=== PATIENT | male | born 1935 | race Caucasian/White ===

== ENCOUNTER 2017-07-27 02:33 | Inpatient (IN) | payer MEDICARE, OTHER ==
[2017-07-25 11:44] VITALS: BP 158/66
--- NOTE | 2017-07-25 14:04 | DIREP ---
PROCEDURE:CHEST 2 VIEWS COMPARISON:None. INDICATIONS:PRE-OP CARDAIC CATH, ABN STRESS FINDINGS: LUNGS/PLEURA:No significant pulmonary parenchymal abnormalities. No effusions. VASCULATURE:Normal. Unremarkable pulmonary vasculature. CARDIAC:Subtle calcifications of the ventricular wall are suspected. MEDIASTINUM:Normal. No visible mass or adenopathy. BONES:Normal. No fracture or visible bony lesion. OTHER:Negative. CONCLUSION:No acute process. Heart size is normal however subtle calcifications of the ventricular wall are suspected Dictated by: Jairo Pham MD on 07/25/2017 at 01:09 PM
[2017-07-27] VITALS (24 sets, daily range): BP systolic 105–175; BP diastolic 38–113
[~2017-07-27] VITALS: Ht 190.5 cm; Wt 115.3 kg
[~2017-07-27 02:33] MED LIST: ASCO10002 PO; CALC500T52 PO; CYAN25008 PO; GABA600T2 PO; LISI1TAB5 PO
[2017-07-27] MEDS ORDERED: HEPARIN ONE (05:48)
[2017-07-27] MEDS ORDERED: SUBLIMAZE ONE (05:49)
[2017-07-27] MEDS ORDERED: VERSED ONE (05:49)
[2017-07-27] MEDS ORDERED: XYLOCAINE ONE (05:49)
[2017-07-27] MEDS ORDERED: PHENERGAN PO ONE ×2 (06:00→06:10)
[2017-07-27] MEDS ORDERED: NS 1000ML 1,000 ML IV SCH (06:00)
[2017-07-27] MEDS ORDERED: VALIUM PO ONE (06:00)
[2017-07-27] MEDS ORDERED: CHOL500016 PO (06:02)
--- NOTE | 2017-07-27 08:35 | NUR ---
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 PATIENT AWAKE AND ALERT. NO DISTRESS NOTED. PATIENT TRANSFERRED INTO ICU BED WITH 3 PERSON ASSIST. PATIENT TOLERATED WELL. PATIENT REINSTRUCTED ON FLAT TIME, VOICED UNDERSTANDING. REPORT RECEIVED FROM Morgan MUÑOZ RN. PATIENT CONNECTED TO BEDSIDE MINDRAY. RIGHT GROIN HEART CATH SITE SOFT, NO BRUISING OR HEMATOMA NOTED. DRESSING C/D/I. PULSES TO BLE 2+, CAP REFILL < 6SEC, EQUAL IN WARMTH, COLOR, AND SENSATION. PATIENT DENIES ANY PAIN. SPOUSE AT BEDSIDE. PATIENT AND SPOUSE ORIENTED TO ROOM, BED, AND CALL LIGHT.
--- NOTE | 2017-07-27 10:15 | NUR ---
DR. ESCOBEDO AT BEDSIDE TALKING TO PATIENT AND SPOUSE OVER HEART CATH FINDINGS AND PLAN OF CARE.
--- NOTE | 2017-07-27 10:30 | NUR ---
FLAT TIME OVER. SITE DRESSING C/D/I, NO SWELLING OR BRUISING NOTED. PATIENT HOB ELEVATED 30 DEGREES. SITE RECHECKED. NO BLEEDING OR HEMATOMA NOTED. BLE CAP REFILLS < 6 SEC, PEDAL PULSES 2+. AM MEDICATIONS TO BE GIVEN, SEE EMAR.
[2017-07-27] MEDS ORDERED: TOPROL XL PO ONE (10:45)
[2017-07-27] MEDS ORDERED: ALTACE ONE (10:45)
[2017-07-27] MEDS ORDERED: RANEXA PO ONE (10:45)
[2017-07-27] MEDS ORDERED: PROTONIX PO ONE (10:45)
[2017-07-27] MEDS ORDERED: NEURONTIN ONE (10:46)
[2017-07-27] MEDS: RANEXA PO SCH ×2 (10:53→21:18)
[2017-07-27] MEDS: ALTACE PO SCH ×2 (10:53→21:18)
[2017-07-27] MEDS: NEURONTIN PO SCH ×2 (10:53→21:19)
[2017-07-27] MEDS: PROTONIX PO SCH (10:54)
[2017-07-27] MEDS: NS 1000ML 1,000 ML IV SCH (10:56)
--- NOTE | 2017-07-27 12:40 | CCRH ---
DATE OF SERVICE: 07/27/2017 PRIMARY PHYSICIAN: Dr. Zamora. CONSULTING PHYSICIAN: Dr. Yap. PRECATHETERIZATION DIAGNOSES: History of significant dyspnea, preoperative cardiovascular evaluation, history of significant shortness of breath and abnormal myocardial perfusion scan with abnormal TID, with inferoposterior reperfusion abnormality, normal ejection fraction. POSTCATHETERIZATION DIAGNOSES: Long distal left main has got a concentric 90% stenosis, tortuous LAD with some degree of calcification and proximal 40-50% stenosis and mid 60% stenosis and diffuse disease of the distal LAD, which appears to still be a fair size vessel and is graftable. The diagonal branch is a small vessel. The circumflex is a fairly large vessel with the marshall circumflex in the distal portion after the origin of the first obtuse marginal branch is a long segment of 90% stenosis with calcification. The first obtuse marginal branch has diffuse luminal irregularity. Right coronary artery is a codominant vessel with tortuosity and diffuse ectasia and diffuse luminal irregularity and distal 60% stenosis. Left ventricle is mildly dilated with good wall contractility, ejection fraction of 60%. ANESTHESIA: 2% lidocaine. PREOPERATIVE MEDICATIONS: Phenergan 25 mg p.o., Valium 2.5 mg p.o., Versed 2 mg IV, fentanyl 25 mcg IV. ANTICOAGULATION: Heparin 2000 units intra-arterially, 2000 units in the flush solution, 1000 in the dye solution. Dye is Omnipaque. Total amount 76 mL. CATHETERS: JL4 6-Angolan, JR4 6-Angolan, and 6-Angolan angled pigtail catheter. ARTERIAL TIME: 8 minutes. FLUOROSCOPY TIME: 2.4 minutes. PROCEDURES: Left heart catheterization, bilateral selective coronary arteriography, left ventriculography via right femoral Jose Manuel approach. NARRATION OF PROCEDURE: Under local anesthesia, the right femoral artery was punctured using open needle technique, and 6-Angolan Cordis sheath was introduced into the femoral artery. Side port of the sheath was used for continuous monitoring of femoral arterial pressure. Subsequently, JL4 6-Angolan left Jose Manuel coronary catheter was introduced over a guidewire and navigated across the ascending aorta, and selective cannulation of left coronary artery was achieved. Left coronary arteriography was performed in EVELYN and SOSA projections using craniocaudal angulations for adequate visualization of all the branches. This catheter was then exchanged with JR4 6-Angolan right coronary catheter which was manipulated, and selective cannulation of right coronary artery was achieved. Right coronary arteriography was performed in EVELYN and AP projections. Right coronary catheter was then exchanged with 6-Angolan angled pigtail catheter which was navigated across the aortic valve. Hemodynamics were measured, and left ventriculography was performed in 30-degree SOSA projection using 35 mL of Isovue at 12 mL/sec at 600 PSI. Patient tolerated the procedure well. HEMODYNAMICS: LVEDP is 15 mm, LV pressure is 160/15, femoral artery pressure 175/81 with a mean of 95. No gradient across the aorta on pullback of the central catheter. FINAL CONCLUSION: Triple vessel coronary artery disease with distal left main 90% stenosis with intact LV systolic function. The patient cannot have his surgery under anesthesia. Probably revascularization with cardiac bypass surgery is advisable. We will make arrangements for the same and optimize medical therapy. Laxmichand MD Marely DR: TERI/oralia JOB# [id number]
--- NOTE | 2017-07-27 14:05 | NUR ---
PATIENT RESTING QUIETLY IN BED WITH EYES CLOSED. RESPIRATION EVEN AND UNLABORED. CALL LIGHT WITHIN EASY REACH.
--- NOTE | 2017-07-27 15:22 | PCM.EKG ---
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
--- NOTE | 2017-07-27 16:15 | NUR ---
UP TO CHAIR PATIENT UP TO CHAIR AT BEDSIDE WITH STANDBY ASSIST. NO DISTRESS NOTED. RIGHT GROIN CATH SITE DRESSING C/D/I, NO BLEEDING/BRUISING OR HEMATOMA NOTED. SPOUSE AT BEDSIDE. CALL LIGHT WITHIN EASY REACH.
--- NOTE | 2017-07-27 17:58 | NUR ---
PATIENT BACK TO BED WITH STANDBY ASSIST. NO DISTRESS NOTED. SIDE RAILS UP X2, CALL LIGHT WITHIN EASY REACH.
--- NOTE | 2017-07-27 18:50 | NUR ---
SBAR REPORT RECEIVED FROM Kristi GUNN RN. INTRODUCED SELF, ASSUMED CARE.
[2017-07-27] MEDS ORDERED: LIPITOR PO SCH (21:00)
[2017-07-28] VITALS (12 sets, daily range): BP systolic 117–181; BP diastolic 54–117
--- NOTE | 2017-07-28 06:52 | NUR ---
Report received from outgoing shift nurse and assumed care.
--- NOTE | 2017-07-28 06:52 | NUR ---
SBAR REPORT GIVEN TO ONCOMING SHIFT. RELINQUISHED CARE.
--- NOTE | 2017-07-28 07:30 | NUR ---
Patient use the urinal, 200 ml of clear, yellow urine.
[2017-07-28] MEDS ORDERED: TOPROL XL PO ONE (07:38)
[2017-07-28] MEDS ORDERED: ASPIRIN EC ONE (07:39)
[2017-07-28] MEDS ORDERED: PROTONIX IV IV ONE (07:39)
--- NOTE | 2017-07-28 07:45 | NUR ---
ASSESSMENT COMPLETED CHARTED. PATIENT LYING IN BED, AWAKE, ALERT AND ORIENTED X3. ON RA WITH SPO2 AT 95%, IV G 20 L WRIST WITH NS INFUSING AT 50 ML/HR. LUNG SOUND CLEAR. BOWEL SOUND X4. NO DISTRESS NOTED. RIGHT GROIN HEART CATH SITE SOFT, NO BRUISING OR HEMATOMA NOTED. DRESSING C/D/I. PULSES TO BLE 2+, CAP REFILL < 6SEC, EQUAL IN WARMTH, COLOR, AND SENSATION. PATIENT STATED THAT HE HAS BACK PAIN BUT IT IS TOLERABLE AT THIS TIME. BED IN LOW LOCK POSITION. SIDE RAILS UP X2. CALL LIGHT WITHIN REACH.
[2017-07-28] MEDS: NS 1000ML 1,000 ML IV SCH (07:56)
--- NOTE | 2017-07-28 08:00 | NUR ---
Assisted patient to sit on the side of the bed and breakfast tray served.
[2017-07-28] MEDS: NEURONTIN PO SCH (08:41)
[2017-07-28] MEDS: PROTONIX PO SCH (08:41)
[2017-07-28] MEDS: RANEXA PO SCH (08:42)
[2017-07-28] MEDS: ALTACE PO SCH (08:42)
[2017-07-28] MEDS ORDERED: METO25TA2 PO (08:43)
[2017-07-28] MEDS ORDERED: PANT40TA3 PO (08:43)
[2017-07-28] MEDS ORDERED: ATOR20TA PO (08:43)
[2017-07-28] MEDS ORDERED: ASPI-655 PO (08:43)
[2017-07-28] MEDS ORDERED: RAMI2.5C PO ×2 (08:43→08:45)
[2017-07-28] MEDS ORDERED: ASPIRIN EC PO SCH (09:00)
[2017-07-28] MEDS ORDERED: TOPROL XL PO SCH (09:00)
--- NOTE | 2017-07-28 09:00 | NUR ---
Patient use the urinal, 250 ml of clear yellow urine.
--- NOTE | 2017-07-28 09:10 | NUR ---
PATIENT RESTING QUIETLY IN BED WITH EYES CLOSED. RESPIRATION EVEN AND UNLABORED. CALL LIGHT WITHIN EASY REACH.
--- NOTE | 2017-07-28 10:04 | HPH ---
ADMIT DATE: 07/27/2017 CHIEF COMPLAINT: Severe coronary artery disease with a 90% left main stenosis observed in ICU till arrangements to be made for revascularization. HISTORY OF PRESENT ILLNESS: The patient is a 81-year-old white male who was seen in the clinic on 07/09/2017 as a consultation for Dr. Zamora. He had a benign lesion removed from the left side of the nose and there was a loss of integrity of the cartilage and now he is left with a gap in the left nostril and he was supposed to have skin grafting done, but he complained of history of dyspnea on exertion and dyspnea at rest, leg edema, shortness of breath with underlying history of hypertension, hypertensive heart disease and had numerous PACs and ST-T wave changes on EKG, which resulted in noninvasive evaluation, which showed he had mild left ventricular hypertrophy, intact LV systolic function, but his myocardial perfusion scan was abnormal with LV dilatation, abnormal TID, inferoposterior ischemic substrate. Hence, the patient was advised to have cardiac catheterization and his nasal surgery was deferred at this time. He has not had any prior myocardial infarction or known history of any underlying cardiac event. ALLERGIES: NONE KNOWN. MEDICATIONS: He has been on gabapentin 600 mg twice a day for his peripheral neuropathy manifestations, lisinopril HCT 20-12.5 one tablet daily. PAST MEDICAL HISTORY: History of hypertension, hypertensive heart disease, nasal surgery. SOCIAL HISTORY: He is a nonsmoker, no ethanol use. SURGICAL HISTORY: Nasal surgery, it was a noncancerous lesion. REVIEW OF SYSTEMS: Revealed significant dyspnea on exertion and at rest, which is progressive in nature along with leg edema and indigestion periodically and numbness and tingling in the lower extremities at times, unsteady gait and weight gain. PHYSICAL EXAMINATION: GENERAL: He is alert, awake, oriented when he had come in for cardiac catheterization. VITAL SIGNS: Pulse was 70, blood pressure was elevated to about 180/90, respirations were 18 and he was 6 feet tall and 261 pounds. HEENT: Unremarkable. He did have a gap in the left nostril and there is a loss of integrity of the left nostril with a large gap and related to loss of cartilage following nasal surgery for a benign lesion by Dr. Zamora. NECK: No JVD was discernible, no definite carotid bruits. CHEST: Thick chest wall. Poor air entry bilaterally. HEART: S1, S2 normal. No murmurs, gallop rhythm. ABDOMEN: Rounded, no organomegaly. Bowel sounds present. EXTREMITIES: Mild dependent edema. NEUROLOGIC: No focal neuro deficit is documented. IMAGING STUDIES: EKG: Regular sinus rhythm with diffuse nonspecific ST-T wave changes, abnormal myocardial perfusion scan. The patient's cardiac catheterization done on 07/27/2017 showed that he had a very critical left main with 90% left main stenosis with calcification and atherosclerosis of all his major epicardial vessels with LAD showing 60% stenosis in the proximal portion followed by diffuse atherosclerotic non-flow obstructive disease in the mid and the distal portion of the LAD and circumflex is a fairly large size vessel and it is a codominant vessel with the first obtuse marginal branch with luminal irregularity without any flow obstructive lesion and his jamul circumflex had a long segment of 90% stenosis with good distal runoff. The right coronary artery was a nondominant vessel with diffuse atherosclerosis and ectasia and distally had 50-60% stenosis with some degree of tortuosity. Left ventricular function was intact. Impression is severe coronary artery disease, symptomatic status with a critical distal left main stenosis. The patient is not on optimum medical therapy. RECOMMENDATION: At this time, the patient in view of his ominous anatomy was observed in ICU and was initiated on beta blockers and aspirin and statins and arrangements were going to be made for him to have revascularization done as soon as possible. He will be monitored in ICU for 24 hours, till some form of arrangements have been established that he could have revascularization as soon as possible. Laxmichand MD Marely DR: TERI/oralia JOB# [id number]
--- NOTE | 2017-07-28 10:32 | NUR ---
Dr. Yap at bedside. New order received. Change Toprol dosage to [address] Yap confirm with Dr. Faith his office address.
--- NOTE | 2017-07-28 10:50 | NUR ---
DC IV with catheter tip intact.
--- NOTE | 2017-07-28 11:00 | NUR ---
Called in prescription at [facility]. Closure device card given to patient's spouse. Exit care instruction given to patient and his . No further question at this time. Inform them to call the unit if they have clarification or questions. Brown envelope with CD to be given to Dr. Faith on their office visit on Sunday (2016) at 1330 in [place].
--- NOTE | 2017-07-28 11:30 | NUR ---
Transported patient out of the unit by wheelchair on room air to his private vehicle accompanied by his (who will be driving) with all of his personal belongings.
--- NOTE | 2017-07-28 18:32 | DSH ---
DATE OF DISCHARGE: 07/28/2017 FINAL DIAGNOSES: Critical distal 90% left main stenosis and triple vessel disease with LAD showing 60% stenosis and distally has 40-50% stenosis with the [place] circumflex long segment of 80-90% stenosis, with a good graftable first obtuse marginal branch and a nondominant RCA with diffuse ectasia and atherosclerosis with a 40-50% stenosis in the distal portion of the intact LV systolic function, symptomatic status with progressive dyspnea, hypertension, hypertensive heart disease, obesity, revascularization for coronary artery disease. Please refer to my history and physical to the point of my impression. HOSPITAL COURSE: The patient is a 81-year-old white male who had come in for a preoperative evaluation from Dr. Zamora because of loss of cartilage in the left nostril region after he had surgery done for a benign lesion and a Plastic Surgery was to be contemplated, but he was having significant dyspnea manifestations and shortness of breath and indigestion, he had leg edema with underlying history of hypertension on lisinopril HCT and he also has peripheral neuropathy, he underwent cardiac catheterization based on abnormal myocardial perfusion scan with abnormal LV dilatation post-Lexiscan with TID being elevated to 1.09 and inferoposterior ischemic substrate and noted to have ominous anatomy and he was observed in the hospital till arrangements were being made for revascularization. He has an appointment on Sunday at 1:[address] Faith's office on 07/30/2017 for evaluation and be admitted for bypass surgery on 07/31/2017. He is dismissed today on 07/28/2017 on aspirin 81 mg once a day, Lipitor 40 mg once a day, metoprolol 25 mg once a day, Protonix 40 mg once a day, ramipril 5 mg twice a day. Continue ascorbic acid 1 mg daily, calcium carbonate 500 mg daily chewable and vitamin D3 5000 units daily and vitamin B12 250 mcg one tablet daily and gabapentin 600 mg twice a day. I did stop his lisinopril HCT and I will see him back after his bypass surgery. Directions given for him to see Dr. Faith at 1:30 on 07/30/2017. Laxmichand MD WENDI Yap: TERI/oralia JOB# [id number]
== END 2017-07-28 11:30 | disposition home or self-care (01) | DRG 287 ==
LOC: SDC 02:33 → ICU 08:50
PROVIDERS: ADMIT Specialist; ATTEND Specialist
PROC: 4A023N7 Measurement of Cardiac Sampling and Pressure, Left Heart, Percutaneous Approach (ICD-10-PCS; principal; 2017-07-27)
PROC: B2111ZZ Fluoroscopy of Multiple Coronary Arteries using Low Osmolar Contrast (ICD-10-PCS; 2017-07-27)
PROC: B2151ZZ Fluoroscopy of Left Heart using Low Osmolar Contrast (ICD-10-PCS; 2017-07-27)
DX: I25.10 Atherosclerotic heart disease of native coronary artery without angina pectoris (principal); G62.9 Polyneuropathy, unspecified; I11.9 Hypertensive heart disease without heart failure; E66.9 Obesity, unspecified; Z79.82 Long term (current) use of aspirin; Z79.899 Other long term (current) drug therapy; Z68.31 Body mass index [BMI] 31.0-31.9, adult
CPT/HCPCS: 36415; 71020; 80061; 83880; 85610; 93005; 93458; 99152; 99153; C1760; C1894; C9113; J1644; J2250; J3010; J7030; Q9967